=== PATIENT | female | born 1980 | race Caucasian/White ===

== ENCOUNTER 2017-03-16 14:43 | Day surgery (SDC) | payer OTHER ==
[~2017-03-16] VITALS: Ht 175.3 cm; Wt 98.4 kg
[~2017-03-16 14:43] MED LIST: ASPIR 8181 M1 PO; ATIVAN1 MG PO; CYMBALTA60 MG PO; DOLOPHINE HCL5 MG PO; HYDRALAZINE HCL10 MG PO; LYRICA300 MG PO; MOBIC15 MG PO; MOTRIN800 MG PO; NOHOMEMEDS; OXYCODONE HCL10 MG PO; PLAQUENIL200 MG PO; PRILOSEC20 MG PO; SEROQUEL200 MG PO; TYLENOL EXTRA500 MG PO; VENTOLIN HFA18 GM IH; VITAMIN D-32000 UNI2 PO
== END 2017-03-16 16:25 | disposition home or self-care (01) ==
LOC: PAIN 14:43
DX: M16.0 Bilateral primary osteoarthritis of hip (principal); G89.29 Other chronic pain; M25.561 Pain in right knee; M25.562 Pain in left knee; M47.816 Spondylosis without myelopathy or radiculopathy, lumbar region; M79.7 Fibromyalgia; M54.5 Low back pain; M06.9 Rheumatoid arthritis, unspecified; F41.9 Anxiety disorder, unspecified; Z79.82 Long term (current) use of aspirin; Z79.891 Long term (current) use of opiate analgesic; F17.210 Nicotine dependence, cigarettes, uncomplicated
CPT/HCPCS: J1030; J2250; J3010; S0020